=== PATIENT | female | born 1980 | race Caucasian/White ===

== ENCOUNTER → 2023-09-27 18:33 | Outpatient (REF) | payer OTHER, SELFPAY | LOC: WDC 18:33 | PROVIDERS: ATTENDING PHYSICIAN Nurse Practitioner | DX: Z12.31 Encounter for screening mammogram for malignant neoplasm of breast (principal) | CPT/HCPCS: 77063; 77067 ==

== ENCOUNTER → 2023-11-01 06:33 | Outpatient (REF) | payer OTHER, SELFPAY | LOC: HWRAD 06:33 | PROVIDERS: ATTENDING PHYSICIAN Nurse Practitioner | DX: E04.1 Nontoxic single thyroid nodule (principal) | CPT/HCPCS: 76536 ==

== ENCOUNTER → 2024-07-16 13:11 | Outpatient (REF) | payer OTHER, SELFPAY | LOC: HWRAD 13:11 | DX: R51.9 Headache, unspecified (principal); J32.9 Chronic sinusitis, unspecified | CPT/HCPCS: 70450; 70486 ==